=== PATIENT | female | born 1955 | race Caucasian/White ===

== ENCOUNTER → 2020-08-03 | Outpatient (CLI) | payer OTHER ==
[~2020-08-03] MED LIST: ATROVENT IH; HYDROCHLOROTHIA25 M1 PO; HYDROCODONE-AP1 EACH PO; LISINOPRIL40 MG PO; METFORMIN HCL500 MG PO; NEURONTIN 300300 M1 PO; ROBAXIN 750 MG750 MG PO; SIMVASTATIN40 MG PO; SYMBICORT160 MCG/4. INH; TRAMADOL 50 MG50 MG PO; TYLENOL EX167 MG/5 M OR; ULTRAM 50MG TAB50 MG PO; ZETIA10 MG PO
== END ==
LOC: LAB 12:37
PROVIDERS: ATTEND Anesthesiology
DX: Z01.812 Encounter for preprocedural laboratory examination (principal); Z20.822 Contact with and (suspected) exposure to COVID-19